=== PATIENT | male | born 1945 | race Caucasian/White ===

== ENCOUNTER → 2019-02-19 | Outpatient (CLI) | payer OTHER ==
[~2019-02-19] MED LIST: CARDIZEM CD120 MG PO; ELIQUIS5 MG PO; LASIX 40 MG TAB40 M2 PO; LIPITOR 20 MG T20 M1 PO; OMEPRAZOLE 20 M20 M1 PO
[2019-02-19 07:17] LABS: HEMATOCRIT 45.7 % (42.0-52.0); HEMOGLOBIN 15.8 gm/dL (14.0-18.0); MCH 36.8 pg (26.0-34.0); MCHC 34.5 g/dL (28.0-37.0); MCV 106.8 fL (80.0-100.0); RBC 4.28 mil/uL (4.50-6.00); WBC 6.9 thou/uL (4.0-11.0)
[2019-02-19 07:34] LABS: ALBUMIN 3.8 g/dL (3.4-5.0); CALCIUM 8.8 mg/dL (8.5-10.1); CREATININE 1.1 mg/dL (0.7-1.3); POTASSIUM 4.3 mmol/L (3.5-5.1); TOTAL BILIRUBIN 0.9 mg/dL (<0.1-1.0); TOTAL PROTEIN 7.5 g/dL (6.4-8.2)
== END ==
LOC: CAT 06:33
PROVIDERS: Internal Medicine Cardiovascular Disease
DX: I48.91 Unspecified atrial fibrillation (principal); I25.10 Atherosclerotic heart disease of native coronary artery without angina pectoris; M47.814 Spondylosis without myelopathy or radiculopathy, thoracic region

== ENCOUNTER 2019-02-22 06:36 | Observation (INO) | payer OTHER ==
[~2019-02-22] VITALS: Ht 167.6 cm; Wt 90.4 kg
--- NOTE | ~2019-02-22 | P ---
[facility] [place] [address] PROCEDURE REPORT Name: JED TUTTLE Lavelle Room #: 201-P [facility]..#: [id number] Admission: 02/22/19 ������������������ Attend Phys: Casey Layne MD Discharge: ������������������ Date of : 47 Report #: [id number] THIS REPORT FOR: //name// CC: [facility] physician/PCP Casey OCAMPO PREOPERATIVE DIAGNOSIS: Atrial fibrillation. POSTOPERATIVE DIAGNOSES: 1. Atrial fibrillation. 2. Mitral annular flutter. PROCEDURES PERFORMED: 1. AFib ablation, CPT code 61864. 2. 3D mapping EP, CPT code 96318. 3. Intracardiac echo, CPT code 26932. 4. Focal ablation, CPT code 28620. 5. Ablation of mitral annular flutter, CPD code 89218. HISTORY OF PRESENT ILLNESS: The patient is a 73-year-old with history of AFib despite sotalol therapy, here for an ablation. ANESTHESIA: The patient underwent general anesthesia with no anesthesia related complications. DESCRIPTION OF PROCEDURE: The patient underwent informed consent. We discussed the details of the procedure including the risks, which include but not limited to bleeding, vascular damage, cardiac perforation as well as stroke or CO. He understood these risks and is willing to proceed. The patient was brought to the EP laboratory in a fasting and sedated state and prepped and draped in a sterile fashion. I injected lidocaine to the right groin, obtained access to the right femoral vein x 3, placing an 8, 9 and 7-Maltese short sheath using the modified Seldinger technique. Next, under fluoroscopy, a decapolar catheter was easily placed into the coronary sinus and an ice catheter was placed in the right atrium. Using intracardiac ultrasound, I created a detailed 3D geometry of the left atrium with specific emphasis of the two left and two right pulmonary veins and the left atrial appendage. This was merged with the patient's cardiac CT scan. Next, the patient was systemically heparinized and a transseptal was performed using an SL1 sheath and a Friant needle. The patient did have somewhat of a fibrosed interatrial septum, but I was able to cross with ease. Next, I used a Lasso catheter and created a detailed 3D geometry and voltage map of the left atrium. Next, the SL1 sheath was exchanged for the cryoballoon and the cryoballoon was placed into the left atrium, I started by isolating the pulmonary veins. [facility] [address] [place] [address] PROCEDURE REPORT Name: JED TUTTLE Room #: 201-P [facility].#: [id number] Admission: 02/22/19 ������������������ Attend Phys: Casey Layne MD Discharge: ������������������ Date of : 47 Report #: [id number] pulmonary vein isolated during the first freeze within 60 seconds. I performed a 4-minute and a 3-minute freeze in this vein. I then turned my attention to the left inferior pulmonary vein. I performed two 4-minute freezes, and this did not result in isolation. I then performed a third freeze with better temperatures, and the vein isolated within 98 seconds. I then interrogated the left superior and left inferior pulmonary veins, which almost shared a common ostium and these appeared to be isolated. I then turned my attention to the right-sided veins, phrenic nerve pacing was performed from the decapolar catheter placed in the subclavian vein. The right superior pulmonary vein underwent a 3-minute freeze, followed by a 140 second freeze. The vein isolated during the second freeze within 47 seconds. I came off early as the temperature was -55 degrees and the vein had already isolated. I then turned my attention to the right inferior pulmonary vein, and I performed a 4-minute freeze, which resulted in isolation within 100 seconds. There were some smaller potential still noted. Therefore, I performed a second 3-minute freeze, and this resulted in further isolation of the vein. Next, the patient was still in atrial fibrillation after isolation of these veins. I created another voltage map, and there was clear isolation with wide circumferential ablation of all 4 veins. I decided to perform additional posterior wall isolation with the cryoballoon. I performed 3 freezes from along the roof line from the left pulmonary vein. I performed 3 roofline freezes with the balloon anchored along the right superior pulmonary vein. A repeat voltage map was then created and clearly we had isolated the posterior roof area. Therefore, cardioversion was performed at 200 joules with worship of sinus rhythm. ABLATION OF MITRAL ANNULAR FLUTTER: I was going to perform an EP study, but then the patient went into atrial flutter. There was proximal to distal activation along the CS catheter. Pacing was performed from CS 1, 2, and the post-pacing interval minus tachycardia cycle length was 20 milliseconds consistent with mitral annular flutter. I initially tried to terminate this flutter by performing freezes along the mitral annulus using the cryoballoon, but this was unsuccessful. Therefore, I removed this cryoablation catheter. Next, a CumulocityTouch ThermoCool ablation catheter was opened and placed via the cryo sheath into the left atrium. There was evidence of fractionated voltage between the left inferior pulmonary vein and the mitral annulus. I performed ablation and performed a continuous drag lesion along this region until I reached the mitral annulus. Once I started ablating close to the mitral annulus, there was clear change in the activation of the atrial flutter. It was no longer proximal to distal, but now had a Chevron activation with earliest activation at CS 7, 8, and it appeared that the latest activation was now at CS 1, 2. The tachycardia cycle length remained about the same at around 210 milliseconds and entrainment from CS 7, 8 demonstrated PPI minus tachycardia cycle length of 20 milliseconds. Therefore, this was still likely some mitral annular flutter, potentially changed by ablation along the mitral annulus. Additional ablation along the mitral annulus did not result in further change in [facility] [address] [place] [address] PROCEDURE REPORT Name: JED TUTTLE Room #: 201-P [facility]..#: [id number] Admission: 02/22/19 ������������������ Attend Phys: Casey Layne MD Discharge: ������������������ Date of : 47 Report #: [id number] the activation or cycle length. Therefore, I placed the ablation catheter into the coronary sinus and performed 3 ablation lesions in this site. During the third ablation lesions, there was a change in the activation, and then, the patient degenerated into atrial fibrillation. At this point, the patient no longer organized into an atrial flutter. He underwent a second cardioversion that lasted a few minutes, and therefore, I gave him 150 mg of IV amiodarone and performed a third cardioversion, which resulted in sinus rhythm that persisted for one hour post-ablation. As such, the patient received systemic protamine and once ACT was within acceptable range, all catheters and sheaths were pulled and hemostasis was obtained. The patient awoke neurologically and hemodynamically intact. No complications and no significant bleeding. CONCLUSIONS: 1. Successful AFib ablation with isolation of the 4 pulmonary veins. 2. Successful creation of a posterior roofline. 3. Successful ablation of mitral annular flutter. The patient will be started on IV amiodarone tonight. He will remain n.p.o. after midnight and if he has any clinical recurrence of AFib or atrial flutter overnight, then we would proceed with cardioversion tomorrow morning. ��������������������������������������������� ���������������������������������������� By: ��������������������������������������������� 1638 0821 Casey Layne MD /nt
--- NOTE | ~2019-02-22 | D ---
[facility] [place] [address] DISCHARGE SUMMARY Name: JED TUTTLE Room #: 201-P [facility] Rosalio MMisti#: [id number] Admission: 02/22/19 ������������������ Attend Phys: Casey Layne MD Discharge: 02/23/19 ������������������ Date of : 47 Report #: [id number] THIS REPORT FOR: //name// CC: MICHAEL OCAMPO [facility] physician/PCP Casey OCAMPO DATE OF SERVICE: 02/23/2019 DISCHARGE DIAGNOSES: 1. Atrial fibrillation. 2. Mitral annular flutter. PROCEDURES PERFORMED: AFib and A-flutter ablation. HISTORY OF PRESENT ILLNESS: The patient is a 73-year-old with history of atrial fibrillation, here for ablation. He underwent successful AFib ablation with wide circumferential ablation of the pulmonary veins, creation of a posterior roofline. He then was found to have mitral annular flutter, which was ablated and actually transitioned to another flutter, which degenerated to atrial fibrillation. The patient underwent 2 cardioversions, which resulted in recurrent AFib. A third cardioversion was performed after giving 150 mg of IV amiodarone, which resulted in sinus rhythm. HOSPITAL COURSE: The patient was monitored in the CCU overnight and did well. On the day of discharge, he denied any chest pain, shortness of breath. PHYSICAL EXAMINATION: GENERAL: No acute distress, alert and oriented x 3. HEENT: Oropharynx clear. NECK: Supple, no thyromegaly. HEART: Regular rate and rhythm with no murmurs, rubs, gallops. LUNGS: Clear bilaterally. His groins showed no bruising or hematoma. On telemetry, he remained in sinus rhythm and his 12-lead EKG showed sinus rhythm. As such, he was deemed stable for discharge home. He will go home on his same medications including anticoagulation. We will initiate amiodarone 400 mg daily for 2 weeks, then decrease this to 200 mg a day. We will continue with amiodarone for a period of 3-6 months to allow for some remodeling and healing to occur, and then, we will try and discontinue this. We discussed that if he has recurrent atrial fibrillation after coming off the amiodarone, then at that point, we will discuss either reinitiation of sotalol therapy versus a repeat ablation. [address] [place] [address] DISCHARGE SUMMARY Name: PARAGJED Room #: 201-P [facility]#: [id number] Admission: 02/22/19 ������������������ Attend Phys: Casey Layne MD Discharge: 02/23/19 ������������������ Date of : 47 Report #: [id number] Thank you for allowing me to participate in his care. ��������������������������������������������� ���������������������������������������� By: ��������������������������������������������� 0840 1607 Casey Layne MD /nt
[2019-02-22 07:07] VITALS: BP 161/98
[2019-02-22 07:10] LABS: ABSOLUTE NEUTROPHILS 5.3 thou/uL (1.4-8.2); BASOPHILS 1.1 % (0.0-2.0); EOSINOPHILS 1.8 % (0.0-3.0); HEMATOCRIT 44.9 % (42.0-52.0); HEMOGLOBIN 15.2 gm/dL (14.0-18.0); LYMPHOCYTES 13.8 % (24.0-44.0); MCH 36.1 pg (26.0-34.0); MCHC 33.9 g/dL (28.0-37.0); MCV 106.5 fL (80.0-100.0); MONOCYTES 10.5 % (1.0-8.0); PLATELET COUNT 217 thou/uL (150-400); POLYS 72.8 % (36.0-66.0); RBC 4.22 mil/uL (4.50-6.00); RDW 13.2 % (10.5-14.5); WBC 7.3 thou/uL (4.0-11.0)
[2019-02-22] MEDS ORDERED: ELIQUIS5 MG PO (07:13)
[2019-02-22] MEDS ORDERED: LASIX 40 MG TAB40 M2 PO (07:14)
[2019-02-22] MEDS ORDERED: OMEPRAZOLE 20 M20 M1 PO (07:15)
[2019-02-22] MEDS ORDERED: CARDIZEM CD120 MG PO (07:15)
[2019-02-22] MEDS ORDERED: LIPITOR 20 MG T20 M1 PO (07:16)
[2019-02-22 07:18] LABS: CALCIUM 9.5 mg/dL (8.5-10.1); CREATININE 1.1 mg/dL (0.7-1.3); POTASSIUM 3.9 mmol/L (3.5-5.1)
[2019-02-22 07:24] LABS: ALBUMIN 3.8 g/dL (3.4-5.0); TOTAL BILIRUBIN 0.9 mg/dL (<0.1-1.0)
[2019-02-22 07:25] LABS: APTT 30.2 Seconds (24.5-32.8); PROTIME 10.4 Seconds (9.3-11.4)
--- NOTE | 2019-02-22 09:06 | EKG ---
[address] [address] ELECTROCARDIOGRAM REPORT Name: PARAGJED Room #: [facility]#: [id number] ������������������ Admission: 02/22/19 ������������������ Attend Phys: Casey Layne MD Discharge: ������������������ Date of : 47 Report #: [id number] ����������������������������������������������������������������� [id number] THIS REPORT FOR: //name// [facility] Test Date: 2019-02-22 Test Time: 07:19:26 Pat Name: JED TUTTLE Department: Room: Gender: M Mixer Attendant: Lavelle LOPEZ : 1945 Requested By: Caesy Layne Order Number: [id number] MD: Malcom Martin Measurements Intervals [place] Rate: 85 P: [place]: QRS: 47 QRSD: 89 T: -1 QT: 378 QTc: 450 Interpretive Statements Atrial fibrillation No previous ECG available for comparison Electronically Signed On 02-22-2019 9:05:56 CDT by Malcom Martin [email or web address] ��������������������������������������������� <ELECTRONICALLY SIGNED> ���������������������������������������� By: Malcom Matrin MD, [facility] ��������������������������������������������� 02/22/19904 8 8 Malcom Martin MD, FACC /EPI
--- NOTE | 2019-02-22 16:44 | NUR ---
PT TO THE UNIT POST ABLATION - ORIENTED TO ROOM AND BEDSPACE. NO CO'S OF PAIN OR [place]. - LESLIE FLUIDS AT THE PRESENT TIME. VVS AND GROIN SITE STABLE POST PROCEDURE. AT THE BEDSIDE. ASSESSMENT CHARTED NO COS' AT THE PRESENT TIME.
[2019-02-23 00:40] VITALS: BP 149/97
[2019-02-23 04:54] LABS: ABSOLUTE NEUTROPHILS 7.5 thou/uL (1.4-8.2); BASOPHILS 0.2 % (0.0-2.0); HEMATOCRIT 40.1 % (42.0-52.0); HEMOGLOBIN 13.3 gm/dL (14.0-18.0); LYMPHOCYTES 5.3 % (24.0-44.0); MCH 35.5 pg (26.0-34.0); MCHC 33.1 g/dL (28.0-37.0); MCV 107.2 fL (80.0-100.0); MONOCYTES 6.4 % (1.0-8.0); PLATELET COUNT 214 thou/uL (150-400); POLYS 88.1 % (36.0-66.0); RBC 3.74 mil/uL (4.50-6.00); RDW 13.2 % (10.5-14.5); WBC 8.5 thou/uL (4.0-11.0)
[2019-02-23 05:03] LABS: CALCIUM 8.1 mg/dL (8.5-10.1); CREATININE 1.1 mg/dL (0.7-1.3); POTASSIUM 4.3 mmol/L (3.5-5.1)
[2019-02-23 05:47] VITALS: BP 131/87
[2019-02-23 07:22] VITALS: BP 143/90
--- NOTE | 2019-02-23 07:35 | NUR ---
ASSESSMENTS CHARTED. OFF BEDREST AT 19.15. DC'D MONTERO, GOOD URINE OUTPUT, NO URINE RETENTION PER BLADDER SCAN. AMIO STILL RUNNING AT END OF SHIFT. PLAN OF CARE TO GO HOME TODAY.
--- NOTE | 2019-02-23 08:23 | EKG ---
[address] [address] ELECTROCARDIOGRAM REPORT Name: JED TUTTLE Room #: 201-[facility]#: [id number] ������������������ Admission: 02/22/19 ������������������ Attend Phys: Casey Layne MD Discharge: ������������������ Date of : 47 Report #: [id number] ����������������������������������������������������������������� [id number] THIS REPORT FOR: //name// [facility] Test Date: 2019-02-22 Test Time: 17:15:47 Pat Name: JED TUTTLE Department: Room: 201 Gender: M Social Worker Clinical: Clemente WU : 1945 Requested By: Alesia Krishnan Order Number: [id number] MD: Malcom Martin Measurements Intervals [place] Rate: 84 P: 34 SC: 213 QRS: 43 QRSD: 114 T: 25 QT: 398 QTc: 471 Interpretive Statements Sinus rhythm Borderline prolonged [place] interval Probable left atrial enlargement Compared to ECG 02/22/2019 07:19:26 Atrial fibrillation no longer present Electronically Signed On 02-23-2019 8:23:29 CDT by Malcom Martin [email or web address] ��������������������������������������������� <ELECTRONICALLY SIGNED> ���������������������������������������� By: Malcom Martin MD, [facility] ��������������������������������������������� 02/23/19 0823 1715 1715 Malcom Martin MD, [facility] /EPI
--- NOTE | 2019-02-23 08:25 | EKG ---
[address] [address] ELECTROCARDIOGRAM REPORT Name: JED TUTTLE Room #: 201-[facility]#: [id number] ������������������ Admission: 02/22/19 ������������������ Attend Phys: Casey Layne MD Discharge: ������������������ Date of : 47 Report #: [id number] ����������������������������������������������������������������� [id number] THIS REPORT FOR: //name// [facility] Test Date: 2019-02-23 Test Time: 07:09:25 Pat Name: JED TUTTLE Department: Room: 201 P Gender: M [employer] Motel Manager: : 1945 Requested By: Alesia Krishnan Order Number: [id number] MD: Casey Layne Measurements Intervals [place] Rate: 80 P: 22 [place]: 244 QRS: 45 QRSD: 85 T: 18 QT: 409 QTc: 472 Interpretive Statements Sinus rhythm Atrial premature complex Prolonged [place] interval Probable left atrial enlargement Compared to ECG 02/22/2019 07:19:26 Atrial premature complex(es) now present First degree AV block now present Atrial fibrillation no longer present Electronically Signed On 02-23-2019 8:25:40 CDT by Casey Layne [email or web address] ��������������������������������������������� <ELECTRONICALLY SIGNED> ���������������������������������������� By: Casey Layne MD ��������������������������������������������� 02/23/19 0825 0709 8 Casey Layne MD /EPI
[2019-02-23] MEDS ORDERED: PACERONE 200 M200 M1 PO (10:25)
[2019-02-23 11:11] VITALS: BP 143/90
[2019-02-23 11:21] VITALS: BP 143/90
--- NOTE | 2019-02-23 11:54 | NUR ---
ASSESSMENT CHARTED - MEDS PER MAR - NO CO'S OF PAIN OR NAUSEA. LESLIE DIET AND FLUIDS. UP AD MARIN IN ROOM - PT STARTED ON PO AMIODORONE AND IV STOPPED - PT HOME THIS AM - INSTRUCTION RE HOME MEDS/ CARE AND FOLLOW UP GIVEN TO PATIENT AND SPOUSE - STATED UNDERSTANDING OF INSTRUCTION GIVEN. MONITOR AND IV REMOVED PRIOR TO D/C. PT LEFT UNIT VIA WHEEL CHAIR - HOME VIS PVT VEHICLE ACCOMPANIED BY - NO CO'S AT TIME OF D/C.
== END 2019-02-23 11:56 | disposition home or self-care (01) ==
LOC: CATH 06:36 → 2N 14:42 → ENTRNSPT 02-23 11:47 → EDTRNSPTSTS 02-23 11:50 → 2N 02-23 11:56 → CMPTRNSPT 02-23 12:00
PROVIDERS: ADMIT Internal Medicine Cardiovascular Disease
DX: I48.91 Unspecified atrial fibrillation (principal); I48.92 Unspecified atrial flutter
CPT/HCPCS: 62110; 62900; 65020; 65040; 70005